=== PATIENT | female | born 1965 | race Caucasian/White ===

== ENCOUNTER → 2016-11-26 | Outpatient (CLI) | payer BC ==
--- NOTE | 2016-11-26 16:26 | MAMMOGRAPHY REPORT ---
BILATERAL DIGITAL SCREENING MAMMOGRAM TOMOSYNTHESIS WITH CAD: 11/26/2016 CLINICAL HISTORY: Routine screening. Patient has no complaints. TECHNIQUE: Breast tomosynthesis in addition to standard 2D mammography was performed. Current study was also evaluated with a Computer Aided Detection (CAD) system. COMPARISON: Comparison is made to exams dated: 02/26/2015 mammogram, 01/12/2013 mammogram, 02/25/2014 m ammogram, 12/30/2010 mammogram, 12/31/2011 mammogram, and 12/29/2009 mammogram - [facility]. BREAST COMPOSITION: There are scattered areas of fibroglandular density in both breasts. FINDINGS: There is a new small cluster of calcifications in the right upper outer quadrant, for whic h spot magnification views are recommended for further evaluation. The remainder of both breasts are stable compared to prior exams, without suspicious masses, calcifi cations, or areas of architectural distortion noted. Other bilateral benign-appearing calcification s are not significantly changed. Bilateral asymmetries are stable. IMPRESSION: ACR BI-RADS CATEGORY 0: INCOMPLETE EVALUATION: NEED ADDITIONAL IMAGING EVALUATION Right upper outer quadrant calcifications, for which additional imaging evaluation is recommended. The patient will be called to schedule an appointment. Approximately 10% of breast cancers are not detected with mammography. A negative mammographic repor t should not delay biopsy if a clinically suggestive mass is present. Magdalena Menjivar M.D. ah/:11/26/2016 16:10:46 Blankbook Stitching Machine Operator: Marcela MENDOZAR, M, [facility] letter sent: Addl Imaging 0 BI-RADS Code: ACR BI-RADS Category 0: Incomplete Evaluation: Need Additional Imaging Evaluation
== END | disposition home or self-care (01) ==
LOC: C.MAMM 15:04
PROVIDERS: ATTEND Family Medicine
DX: Z12.31 Encounter for screening mammogram for malignant neoplasm of breast (principal); R92.1 Mammographic calcification found on diagnostic imaging of breast

== ENCOUNTER → 2016-12-08 | Outpatient (CLI) | payer BC ==
--- NOTE | 2016-12-08 16:13 | MAMMOGRAPHY REPORT ---
UNILATERAL RIGHT DIGITAL DIAGNOSTIC MAMMOGRAM: 12/08/2016 CLINICAL HISTORY: Call back from screening mammography for new right breast microcalcifications. Raven archuleta history of breast cancer = mother. TECHNIQUE: Spot magnification right CC and ML views were obtained. COMPARISON: Comparison is made to exams dated: 11/26/2016 mammogram, 02/25/2014 mammogram, 02/26/2015 mammogram, 01/12/2013 mammogram, 12/31/2011 mammogram, and 12/30/2010 mammogram - [facility]. BREAST COMPOSITION: There are scattered areas of fibroglandular density in the right breast. FINDINGS: There is a small, 1 mm grouping of round microcalcifications in the approximate 9:00 midd le one third of the right breast. On the spot magnification MLO view they may be forming a rim calc ification, suggesting benignity. However, they're new compared to prior mammograms. Also noted is a not there 5 mm grouping of very faint punctate microcalcifications in the upper outer quadrant of the right breast, 2.3 cm nanda-medial to the first cluster on the spot magnification CC view. Thes e are also indeterminate, and is not clearly identified on prior mammograms. No obvious associated asymmetry, mass or architectural distortion. We discussed options of close follow-up imaging versus tissue sampling. We will opt to biopsy both of these groupings of calcifications, given the family history of breast cancer. IMPRESSION: ACR BI-RADS CATEGORY 4B: INTERMEDIATE SUSPICION FOR MALIGNANCY 1. Right breast stereotactic guided biopsy 2 is recommended for small groupings of round and punct ate microcalcifications in the right upper outer quadrant. These results and recommendations were discussed with the patient at the time of the exam. She tent atively scheduled the right breast biopsies prior to leaving our department. Approximately 10% of breast cancers are not detected with mammography. A negative mammographic repor t should not delay biopsy if a clinically suggestive mass is present. Sheeba Hester M.D. ay/:12/08/2016 13:25:57 Insert Cutter: Nadya MENDOZA(Daryl)(Miguel A), [facility] letter sent: Abnormal 4/5 BI-RADS Code: ACR BI-RADS Category 4B: Intermediate Suspicion For Malignancy
== END | disposition home or self-care (01) ==
LOC: C.MAMM 12:49
PROVIDERS: ATTEND Family Medicine
DX: R92.0 Mammographic microcalcification found on diagnostic imaging of breast (principal)

== ENCOUNTER → 2016-12-24 | Outpatient (CLI) | payer BC ==
--- NOTE | 2016-12-24 08:54 | Discharge Instructions ---
Discharge Instructions Procedure Procedure Date: Dec 24, 2016. Reason for visit: Right Calcs X2. Discharge Discharge Date: Dec 24, 2016. Discharge Diagnosis: status post breast biopsy Instructions Activity Recommendations: Additional Limitations (see below) Return to School/Work: no limitations Recommended Home Diet: No Limitations Provider Instructions: ACTIVITY RECOMMENDATIONS: * No lifting, pushing, pulling or exercising the affected side for three days. RETURN TO SCHOOL/WORK: * You may return to work/school after the procedure, but do not perform any strenuous activities for 24 to 48 hours. MEDICATIONS: * Tylenol (two 325 mg) every four to six hours if needed for mild pain (if not allergic to Tylenol). DIET: * Resume previous diet. SPECIAL CARE INSTRUCTIONS: * Keep biopsy site dry for 24 hours. May shower after 24 hours, but do not soak (bathe) incision. * May remove Tegaderm (plastic patch) tomorrow AFTER showering. * Leave the steri-strips on for one week. Allow the steri-strips to fall off by themselves. If not off after one week, you may remove them. You may place a Bandaid crosswise over the strips, if desired. * Apply ice 10 minutes on and 10 minutes off as needed. * Wear a bra at bedtime to sleep more comfortably for 2-3 days. * Your referring physician should have the results after approximately 5 to 7 business days. * Call for unusual bleeding, fever, drainage, etc or if you have any questions call during normal business hours or after hours call Dr Menjivar, . FOLLOW UP VISIT: Follow-up with Referring Physician as scheduled. Allergies Coded Allergies: No Known Allergies (Unverified , 10/08/10) Rosalio Olmos Recommendations: Call your doctor if: * Temperature above 101 degrees * Pain not relieved by pain medicine ordered * There is increased drainage or redness from any incision * You have any unanswered questions or concerns. Your Doctors Instructions noted above were prepared by provider Magdalena Menjivar. Patient Signature Section: Patient Instructions Signature Page Evelin Morel Patient (or Guardian) Signature/Date: I have read and understand the instructions given to me by my caregivers. Caregiver/RN/Doctor Signature/Date: The above-named patient and/or guardian has received patient instructions on this date. + Original Patient Signature Page (only) stays with chart. Please make copy for patient.
--- NOTE | 2016-12-24 14:07 | MAMMOGRAPHY REPORT ---
STEREOTACTIC GUIDED BIOPSY RIGHT BREAST: 12/24/2016 CLINICAL HISTORY: Indeterminate calcifications in the right upper outer quadrant. PATIENT CONSENT: The procedure, risks, benefits, and alternatives of stereotactic biopsy with clip p lacement were discussed with the patient, and verbal and written consent was obtained. A timeout wa s performed immediately prior to the procedure. PROCEDURE DESCRIPTION: With stereotactic guidance, aseptic technique, and lidocaine as a local anest hetic (1% lidocaine to anesthetize the skin and 1% lidocaine with epinephrine to anesthetize the fernando per tissues), the calcifications of concern in the right upper outer quadrant (more superior and ant erior cluster) were sampled multiple times with a 9-gauge vacuum-assisted biopsy needle (Contorion ). The path of approach was craniocaudal. The specimen radiograph demonstrates calcifications to b e present in the samples. The samples with calcifications (labeled A) were from the sampl es without calcifications (labeled B). A metallic marker clip was placed at the biopsy site. This w as confirmed on postprocedure mammograms. Direct pressure was applied at the biopsy site and hemost asis was readily achieved. The patient tolerated the procedure without complication. She was given wound care instructions. COMPARISON: Comparison is made to exams dated: 12/08/2016 mammogram, 11/26/2016 mammogram, 02/26/2015 m ammogram, 02/25/2014 mammogram, 01/12/2013 mammogram, and 12/31/2011 mammogram - [facility]. IMPRESSION: STEREOTACTIC GUIDED BIOPSY Stereotactic biopsy of indeterminate calcifications in the right upper outer quadrant (more superior and anterior cluster), with clip placement. The patient will receive pathology results from her or [facility] physician. Magdalena Menjivar M.D. /:12/24/2016 08:57:28 Dialysis Biomed Technician: Pepito MENDOZA(R)(M), [facility]
--- NOTE | 2016-12-24 14:08 | MAMMOGRAPHY REPORT ---
UNILATERAL RIGHT DIGITAL DIAGNOSTIC MAMMOGRAM: 12/24/2016 CLINICAL HISTORY: Status post stereotactic biopsy 2 of right breast calcifications. TECHNIQUE: Postprocedural right CC and LM views were obtained. COMPARISON: Comparison is made to exams dated: 12/08/2016 mammogram, 11/26/2016 mammogram, 02/26/2015 m ammogram, 02/25/2014 mammogram, 01/12/2013 mammogram, and 12/24/2016 stereotactic biopsy - [facility]. BREAST COMPOSITION: There are scattered areas of fibroglandular density in the right breast. FINDINGS: A new dumbbell-shaped biopsy marker clip is seen within the right upper outer quadrant at the site of the biopsied calcifications (more anterior and superior cluster). A biopsy marker clip is seen in the right upper outer quadrant status post stereotactic biopsy of the other cluster of c alcifications (more posterior and inferior calcifications); there is mild medial migration of the bi opsy marker clip from the biopsy site by approximately 2 cm, likely due to accordion effect. No sig nificant postbiopsy hematoma is seen. IMPRESSION: POST PROCEDURE IMAGING FOR MARKER PLACEMENT New biopsy marker clips status post stereotactic biopsy 2 of the right breast. Pathology results a re pending. Approximately 10% of breast cancers are not detected with mammography. A negative mammographic repor t should not delay biopsy if a clinically suggestive mass is present. Magdalena Menjivar M.D. ah/:12/24/2016 09:29:53 Holter Technician: Pepito Hernandez RT(R)(M), [facility] BI-RADS Code: Post Procedure Imaging For Marker Placement
--- NOTE | 2016-12-24 14:08 | MAMMOGRAPHY REPORT ---
STEREOTACTIC GUIDED BIOPSY RIGHT BREAST: 12/24/2016 CLINICAL HISTORY: Indeterminate calcifications in the right upper outer quadrant. PATIENT CONSENT: The procedure, risks, benefits, and alternatives of stereotactic biopsy with clip p lacement were discussed with the patient, and verbal and written consent was obtained. A timeout wa s performed immediately prior to the procedure. PROCEDURE DESCRIPTION: With stereotactic guidance, aseptic technique, and lidocaine as a local anest hetic (1% lidocaine to anesthetize the skin and 1% lidocaine with epinephrine to anesthetize the fernando per tissues), the calcifications of concern in the right upper outer quadrant (more inferior and pos terior cluster) were sampled multiple times with a 9-gauge vacuum-assisted biopsy needle ([employer] Ev[employer] a). The path of approach was lateral. The specimen radiograph demonstrates calcifications to be pr esent in the samples. The samples with calcifications (labeled A) were from the samples w ithout calcifications (labeled B). A metallic marker clip was placed at the biopsy site. This was confirmed on postprocedure mammograms. Direct pressure was applied at the biopsy site and hemostasi s was readily achieved. The patient tolerated the procedure without complication. She was given wo und care instructions. COMPARISON: Comparison is made to exams dated: 12/08/2016 mammogram, 02/26/2015 mammogram, 02/25/2014 m ammogram, 01/12/2013 mammogram, 12/31/2011 mammogram, and 12/30/2010 mammogram - [facility]. IMPRESSION: STEREOTACTIC GUIDED BIOPSY Stereotactic biopsy of indeterminate calcifications in the right upper outer quadrant (more inferior and posterior cluster), with clip placement. The patient [facility]. Magdalena Menjivar M.D. /:12/24/2016 08:59:23 Confidential Investigator: Pepito MENDOZA(R)(M), [facility]
== END | disposition home or self-care (01) ==
LOC: C.MAMM 07:47
PROVIDERS: ATTEND Family Medicine
DX: R92.1 Mammographic calcification found on diagnostic imaging of breast (principal); R92.0 Mammographic microcalcification found on diagnostic imaging of breast; N60.91 Unspecified benign mammary dysplasia of right breast; N60.41 Mammary duct ectasia of right breast